=== PATIENT | male | born 1950 | race Caucasian/White ===

== ENCOUNTER 2016-07-17 01:55 | Observation (INO) | payer MEDICARE, OTHER ==
[2016-07-17] MEDS ORDERED: NITROGLYCERIN OINT 1 INCH/GM PACKET TOPICAL STA (02:05)
[2016-07-17] MEDS ORDERED: ASPIRIN 81 MG CHEW PO STA (02:05)
--- NOTE | 2016-07-17 02:21 | ED ---
General Adult HPI - General Chief complaint: Chest Pain Stated complaint: chest pain Time Seen by Provider: 07/17/16 02:02 Source: patient, family, RN notes reviewed Mode of arrival: wheelchair Limitations: no limitations - History of Present Illness Initial comments: Patient is a pleasant 66-year-old male presenting to the emergency Department with chest discomfort. Onset of symptoms was just 30-40 minutes prior to arrival. Discomfort is now improved and rated as a 2/10. Discomfort did feel like pressure with associated dyspnea and sweating. No nausea. Patient had similar symptoms once previously with high blood pressure. Patient does have some bilateral leg swelling however this is fairly chronic. Discomfort did radiate up towards the neck. - Related Data Home Medications Medication Instructions Recorded Confirmed No Known Home Medications [No 07/17/16 07/17/16 Known Home Medications] Allergies Allergy/AdvReac Type Severity Reaction Status Date / Time venom-honey bee Allergy Anaphylaxis Verified 07/17/16 02:14 Review of Systems ROS Statement: Those systems with pertinent positive or pertinent negative responses have been documented in the HPI. ROS Other: All systems not noted in ROS Statement are negative. Constitutional: Denies: fever Eyes: Denies: eye pain ENT: Denies: ear pain Respiratory: Reports: dyspnea. Denies: cough Cardiovascular: Reports: chest pain Endocrine: Denies: fatigue Gastrointestinal: Denies: abdominal pain, nausea, vomiting Genitourinary: Denies: dysuria Musculoskeletal: Denies: back pain Skin: Denies: rash Neurological: Denies: weakness Past Medical History Past Medical History: Coronary Artery Disease (CAD), Hyperlipidemia, Hypertension, Myocardial Infarction ([place]) Additional Past Medical History / Comment(s): gout Last Myocardial Infarction Date:: 2010 History of Any Multi-Drug Resistant Organisms: None Reported Past Surgical History: Heart Catheterization Past Anesthesia/Blood Transfusion Reactions: No Reported Reaction Past Psychological History: No Psychological Hx Reported Smoking Status: Never smoker Past Alcohol Use History: None Reported Past Drug Use History: None Reported - Past Family History Father Family Medical History: CVA/TIA General Exam Limitations: no limitations General appearance: alert, in no apparent distress Head exam: Present: atraumatic Eye exam: Present: normal appearance, PERRL ENT exam: Present: normal oropharynx Neck exam: Present: normal inspection Respiratory exam: Present: normal lung sounds bilaterally. Absent: chest wall tenderness Cardiovascular Exam: Present: regular rate, normal rhythm Expanded Peripheral pulses: 2+: Radial (R), Radial (L), Dorsalis Pedis (R), Dorsalis Pedis (L) GI/Abdominal exam: Present: soft. Absent: tenderness Extremities exam: Present: pedal edema (+2 bilateral). Absent: calf tenderness Neurological exam: Present: alert Psychiatric exam: Present: normal affect, normal mood Skin exam: Absent: rash Course Vital Signs 07/17/16 07/17/16 02:00 02:15 Temperature 97.0 F L Pulse Rate 74 72 Respiratory 18 18 Rate Blood Pressure 176/107 169/103 O2 Sat by Pulse 96 95 Oximetry EKG Findings - EKG Comments: EKG Findings:: Sinus rhythm at 72. W[place] 160. QRS 100. QT 414. QTC 453. Left axis. LVH. Septal Q waves. No acute ST change. Medical Decision Making - Medical Decision Making Patient reexamined and resting comfortably in bed. Patient symptom-free. Patient and family updated on results and plan. Dr. martinez paged for admission for Dr. Guillen. - Lab Data Result diagrams: 07/17/16 02:23 07/17/16 02:23 Lab Results 07/17/16 07/17/16 07/17/16 Range/Units 02:23 02:23 02:23 WBC 5.1 (3.8-10.6) k/uL RBC 5.18 (4.30-5.90) m/uL Hgb 15.9 (13.0-17.5) gm/dL Hct 46.7 (39.0-53.0) % MCV 90.1 (80.0-100.0) fL MCH 30.6 (25.0-35.0) pg MCHC 34.0 (31.0-37.0) g/dL RDW 13.3 (11.5-15.5) % Plt Count 152 (150-450) k/uL Neutrophils % 61 % Lymphocytes % 24 % Monocytes % 7 % Eosinophils % 4 % Basophils % 1 % Neutrophils # 3.1 (1.3-7.7) k/uL Lymphocytes # 1.2 (1.0-4.8) k/uL Monocytes # 0.3 (0-1.0) k/uL Eosinophils # 0.2 (0-0.7) k/uL Basophils # 0.1 (0-0.2) k/uL PT (9.0-12.0) sec INR (<1.1) APTT (22.0-30.0) sec Sodium 140 (137-145) mmol/L Potassium 3.7 (3.5-5.1) mmol/L Chloride 104 (98-107) mmol/L Carbon Dioxide 24 (22-30) mmol/L Anion Gap 12 mmol/L BUN 17 (9-20) mg/dL Creatinine 0.60 L (0.66-1.25) mg/dL Est GFR (MDRD) Af Amer >60 (>60 ml/min/1.73 sqM) Est GFR (MDRD) Non-Af >60 (>60 ml/min/1.73 sqM) Glucose 103 H (74-99) mg/dL Calcium 9.1 (8.4-10.2) mg/dL Magnesium 1.8 (1.6-2.3) mg/dL Total Bilirubin 0.6 (0.2-1.3) mg/dL AST 35 (17-59) U/L ALT 64 (21-72) U/L Alkaline Phosphatase 70 (38-126) U/L Total Creatine Kinase 111 (55-170) U/L CK-MB (CK-2) 1.4 (0.0-2.4) ng/mL CK-MB (CK-2) Rel Index 1.3 Troponin I <0.012 (0.000-0.034) ng/mL Total Protein 6.9 (6.3-8.2) g/dL Albumin 3.9 (3.5-5.0) g/dL 07/17/16 Range/Units 02:23 WBC (3.8-10.6) k/uL RBC (4.30-5.90) m/uL Hgb (13.0-17.5) gm/dL Hct (39.0-53.0) % MCV (80.0-100.0) fL MCH (25.0-35.0) pg MCHC (31.0-37.0) g/dL RDW (11.5-15.5) % Plt Count (150-450) k/uL Neutrophils % % Lymphocytes % % Monocytes % % Eosinophils % % Basophils % % Neutrophils # (1.3-7.7) k/uL Lymphocytes # (1.0-4.8) k/uL Monocytes # (0-1.0) k/uL Eosinophils # (0-0.7) k/uL Basophils # (0-0.2) k/uL PT 11.2 (9.0-12.0) sec INR 1.1 (<1.1) APTT 23.3 (22.0-30.0) sec Sodium (137-145) mmol/L Potassium (3.5-5.1) mmol/L Chloride (98-107) mmol/L Carbon Dioxide (22-30) mmol/L Anion Gap mmol/L BUN (9-20) mg/dL Creatinine (0.66-1.25) mg/dL Est GFR (MDRD) Af Amer (>60 ml/min/1.73 sqM) Est GFR (MDRD) Non-Af (>60 ml/min/1.73 sqM) Glucose (74-99) mg/dL Calcium (8.4-10.2) mg/dL Magnesium (1.6-2.3) mg/dL Total Bilirubin (0.2-1.3) mg/dL AST (17-59) U/L ALT (21-72) U/L Alkaline Phosphatase (38-126) U/L Total Creatine Kinase (55-170) U/L CK-MB (CK-2) (0.0-2.4) ng/mL CK-MB (CK-2) Rel Index Troponin I (0.000-0.034) ng/mL Total Protein (6.3-8.2) g/dL Albumin (3.5-5.0) g/dL - Radiology Data Radiology results: image reviewed (Chest x-ray shows no acute process) Disposition Clinical Impression: Unstable angina pectoris Disposition: ADMITTED IP TO THIS HOSP
[2016-07-17 02:43] LABS: ALT 64 U/L (21-72); AST 35 U/L (17-59); Alkaline Phosphatase 70 U/L (38-126); Anion Gap 12 mmol/L; Blood Urea Nitrogen 17 mg/dL (9-20); Calcium 9.1 mg/dL (8.4-10.2); Carbon Dioxide 24 mmol/L (22-30); Chloride 104 mmol/L (98-107); Glucose 103 mg/dL (74-99); Magnesium 1.8 mg/dL (1.6-2.3); Non-African American GFR(MDRD) >60 (>60 ml/min/1.73 sqM); Potassium 3.7 mmol/L (3.5-5.1); Sodium 140 mmol/L (137-145); Total Bilirubin 0.6 mg/dL (0.2-1.3); Total Protein 6.9 g/dL (6.3-8.2)
[2016-07-17 02:45] LABS: Basophils # (A) 0.1 k/uL (0-0.2); Basophils % (A) 1 %; CH 31.4; CHCM 34.9; Eosinophils # (A) 0.2 k/uL (0-0.7); Eosinophils % (A) 4 %; HCT 46.7 % (39.0-53.0); HDW 2.62; HGB 15.9 gm/dL (13.0-17.5); Luc # (Auto) 0.16; Luc % (Auto) 3; Lymphocytes # (A) 1.2 k/uL (1.0-4.8); Lymphocytes % (A) 24 %; MCH 30.6 pg (25.0-35.0); MCV 90.1 fL (80.0-100.0); Mean Platelet Volume 6.4; Monocytes # (A) 0.3 k/uL (0-1.0); Monocytes % (A) 7 %; Neutrophils # (A) 3.1 k/uL (1.3-7.7); Neutrophils % (A) 61 %; RBC 5.18 m/uL (4.30-5.90); RDW 13.3 % (11.5-15.5); WBC 5.1 k/uL (3.8-10.6)
[2016-07-17 02:50] LABS: INR 1.1 (<1.1); Partial Thromboplastin Time 23.3 sec (22.0-30.0); Prothrombin Time 11.2 sec (9.0-12.0)
[2016-07-17 02:52] LABS: Creatine Kinase 111 U/L (55-170)
[2016-07-17 03:05] LABS: Creatine Kinase MB 1.4 ng/mL (0.0-2.4); Troponin I <0.012 ng/mL (0.000-0.034)
--- NOTE | 2016-07-17 03:08 | XR ---
EXAMINATION TYPE: XR chest 2V DATE OF EXAM: 07/17/2016 2:39 AM COMPARISON: 02/11/2014 HISTORY: Chest pain TECHNIQUE: Frontal and lateral views of the chest are obtained. FINDINGS: There is no heart failure nor confluent pneumonic infiltrate. There are no hilar masses. T horacic aorta is atheromatous. There is no pleural effusion. There are chest leads. IMPRESSION: No active cardiopulmonary disease. No change. Normal heart.
[2016-07-17] MEDS ORDERED: HEPARIN SODIUM,PORCINE 5,000 UNIT/ML 1 ML VIAL IV PRN (03:17)
[2016-07-17] MEDS ORDERED: NITROGLYCERIN SL TABS 0.4 MG TAB SUBLINGUAL PRN (03:17)
[2016-07-17] MEDS ORDERED: HEPARIN SODIUM,PORCINE 5,000 UNIT/ML 1 ML VIAL IV ONE (03:17)
[2016-07-17] MEDS ORDERED: HEPARIN SODIUM,PORCINE/D5W PMX 25,000 UNIT in DEXTROSE/WATER 1 500ML.BAG IV SCH (03:30)
[2016-07-17 04:18] VITALS: BMI 38.3
[2016-07-17] MEDS: METOPROLOL TARTRATE 25 MG TAB PO SCH ×2 (04:24→09:33)
[2016-07-17 04:40] VITALS: PULSE 63; RESP 18
[2016-07-17] MEDS ORDERED: NITROGLYCERIN OINT 1 INCH/GM PACKET TOPICAL SCH (07:00)
[2016-07-17 07:56] VITALS: BP 158/92; TEMP 97.7
--- NOTE | 2016-07-17 08:22 | P.CRDCN ---
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 He was sitting at home yesterday when he developed a hot feeling in the face and subsequently sharp discomfort in the mid of the chest. He developed some mild shortness of breath with it without any sweating, nausea, vomiting, or syncope. The time he arrived emergency room he was almost pain-free. He underwent an EKG which showed sinus rhythm with LVH and nonspecific changes in the inferior leads. He had only one set of cardiac enzymes came in to be unremarkable and we are waiting for the second set of enzymes. He is not aware of any prior history of coronary artery disease or coronary artery stenting. Past Medical History Past Medical History: Coronary Artery Disease (CAD), Hyperlipidemia, Hypertension, Myocardial Infarction ([place]) Additional Past Medical History / Comment(s): gout Last Myocardial Infarction Date:: 2010 History of Any Multi-Drug Resistant Organisms: None Reported Past Surgical History: Heart Catheterization Past Anesthesia/Blood Transfusion Reactions: No Reported Reaction Past Psychological History: No Psychological Hx Reported Smoking Status: Never smoker Past Alcohol Use History: None Reported Past Drug Use History: None Reported - Past Family History Father Family Medical History: CVA/TIA Mother Family Medical History: No Reported History Medications and Allergies Home Medications Medication Instructions Recorded Confirmed Type Aspirin [Adult Low Dose Aspirin EC] 81 mg PO DAILY 07/17/16 07/17/16 History Gluc/Gabriel-MSM#1/C/John/Fredrick/Bor 1 each PO DAILY 07/17/16 07/17/16 History [Glucosamine-Chondroitin Tablet] Multivit-Min/FA/Lycopene/Lut 1 each PO DAILY 07/17/16 07/17/16 History [Centrum Silver Tablet] Allergies Allergy/AdvReac Type Severity Reaction Status Date / Time Penicillins Allergy Rash/Hives Verified 07/17/16 04:09 venom-honey bee Allergy Anaphylaxis Verified 07/17/16 02:14 Physical Exam Vitals: Vital Signs Temp Pulse Pulse Pulse Resp BP BP 07/17/16 07:55 97.7 F 63 18 158/92 07/17/16 05:08 137/84 07/17/16 04:00 97.9 F 63 18 163/100 07/17/16 03:34 98.1 F 62 16 157/90 Pulse Ox 07/17/16 07:55 93 L 07/17/16 05:08 07/17/16 04:00 94 L 07/17/16 03:34 97 Intake and Output 07/16/16 07/17/16 07/17/16 22:59 06:59 14:59 Other: # Voids 1 Weight 124.7 kg - Constitutional General appearance: no acute distress - Respiratory Respiratory: bilateral: CTA - Cardiovascular Rhythm: regular Heart sounds: normal: S1, S2 Results 07/17/16 02:23 07/17/16 02:23 Current Medications Generic Name Dose Route Start Last Admin Trade Name Benjy PRN Reason Stop Dose Admin Aspirin 325 mg 07/18/16 09:00 Aspirin PO DAILY KRYSTEN Heparin Sodium (Porcine) 0 unit 07/17/16 03:17 Heparin IV Q6HR PRN Low PTT Protocol Heparin Sodium/Dextrose 25,000 500 mls @ 20.2 mls/hr 07/17/16 03:30 07/17/16 03:54 unit/ IV Solution IV 8.01 units/kg/hr .Q24H KRYSTEN 20 mls/hr Protocol Administration 8.1 UNITS/KG/HR Metoprolol Tartrate 25 mg 07/17/16 03:30 07/17/16 04:24 Lopressor PO 25 mg BID KRYSTEN Administration Nitroglycerin 1 inch 07/17/16 07:00 Nitro-Bid Oint TOPICAL Q6HR KRYSTEN Nitroglycerin 0.4 mg 07/17/16 03:17 Nitrostat SUBLINGUAL Q5M PRN Chest Pain Intake and Output 07/16/16 07/17/16 07/17/16 22:59 06:59 14:59 Other: # Voids 1 Weight 124.7 kg Assessment and Plan Plan: Assessment #1 atypical chest discomfort #2 hypertension Plan #1 awaiting for the serial cardiac enzymes #2 further recommendation to follow the
[2016-07-17 08:29] LABS: Mean Platelet Volume 7.7
[2016-07-17 09:00] LABS: Creatine Kinase 89 U/L (55-170)
[2016-07-17] MEDS ORDERED: LISINOPRIL 5 MG TAB PO SCH (09:00)
[2016-07-17 09:12] LABS: Creatine Kinase MB 1.1 ng/mL (0.0-2.4); Troponin I <0.012 ng/mL (0.000-0.034)
--- NOTE | 2016-07-17 13:20 | HP ---
DATE OF ADMISSION: 07/17/2016 PRESENTING COMPLAINT: Chest pain. HISTORY OF PRESENTING COMPLAINT: This is a 66-year-old patient of Dr. Guillen, chronic stable medical conditions include hyperlipidemia, hypertension, gout. Patient also has a known history of coronary artery disease with [place] back in 2012 with angioplasty. Patient last night suddenly felt extremely hot, maybe slightly short of breath. Not sure if he was dizzy and decided to come in. Patient was admitted to rule out a cardiac cause. Patient has got a fair exercise tolerance and normally does not get chest pain. is present with the patient. Patient has not had a recent stress test. REVIEW OF SYSTEMS: CONSTITUTIONAL: None. HEENT: None. RESPIRATORY: As above. CARDIOVASCULAR: As above. GASTROINTESTINAL: None. GENITOURINARY: None. MUSCULOSKELETAL: None. DERMATOLOGIC: None. HEMATOLOGIC: None. LYMPHATIC: None. PSYCHIATRY: None. NEUROLOGICAL: None. Past history of coronary artery disease with [place] in 2013 with angioplasty, hyperlipidemia, hypertension, gout. PAST SURGICAL HISTORY: Cardiac catheterization. SOCIAL HISTORY: . 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 Does not smoke. No alcohol. Family history of stroke. HOME MEDICATIONS: 1. Glucosamine/chondroitin 1 tablet p.o. daily. 2. Centrum Silver 1 tablet daily. 3. Aspirin 81 mg p.o. daily. Allergies to PENICILLIN and VENOM-HONEY BEE. On examination, temperature 97.7, pulse 53, respiration 18, blood pressure 150/92, pulse ox 93% on room air. GENERAL APPEARANCE: Well built, BMI of 38.3, lying in bed, not in distress. EYES: Pupils equal. Conjunctivae normal. HEENT: Oral cavity normal. NECK: JVD not raised. Mass not palpable. Respiratory effort normal. Lungs are clear. CARDIOVASCULAR: First and second sounds normal. No edema. ABDOMEN: Soft, nontender. Liver and spleen not palpable. LYMPHATIC: No lymph node palpable in neck or axillae. PSYCHIATRY: Alert and oriented x3. Mood and affect normal. NEUROLOGICAL: Pupils equal. Cranial nerves intact. Power and sensation grossly intact. INVESTIGATIONS: White count 5.1, hemoglobin 15.9. Potassium 3.7, troponin x2 negative. ASSESSMENT: 1. Uncontrolled hypertension. 2. Coronary artery disease with prior history of angioplasty in 2012. 3. Hyperlipidemia. 4. History of gout. 5. Obesity, body mass index of 38.3. PLAN: Patient was put on IV heparin in the ER, aspirin, Lopressor. Cardiology was consulted. Patient presentation rather atypical for acute coronary artery syndrome. Care was discussed with the patient and the .
--- NOTE | 2016-07-18 08:17 | DS ---
DATE OF ADMISSION: 07/17/2016 DATE OF DISCHARGE: 07/17/2016 FINAL DIAGNOSES: 1. Uncontrolled hypertension. 2. Coronary artery disease with prior history of angioplasty in 2012. 3. Hyperlipidemia. 4. Gout. 5. Obesity, body mass index of 38.3. HOSPITAL COURSE: This patient presented with burning sensation in his chest. Blood pressure was very high. Medications were added. Patient seen by Dr. Hinojosa. Patient will have an outpatient stress test. Troponin was negative. Patient is clear with Dr. Hinojosa. On exam, lungs are clear. CARDIOVASCULAR: First and second sounds are normal. DISCHARGE MEDICATIONS: 1. Aspirin 81 mg a day. 2. Glucosamine/chondroitin 1 tablet p.o. daily. 3. Zestril 5 mg a day. 4. Lopressor 25 mg p.o. b.i.d. 5. Centrum Silver 1 tablet p.o. daily. 6. Nitrostat 0.4 sublingual q.5 p.r.n. Follow up with Dr. Hinojosa in 1 week. Follow up with Dr. Guillen in 1 week. Outpatient stress test as per Dr. Hinojosa.
[2016-07-18] MEDS ORDERED: ASPIRIN 325 MG TAB PO SCH (09:00)
== END 2016-07-17 11:44 | disposition home or self-care (01) ==
LOC: EC 01:55 → 3OBS 03:17
PROVIDERS: ADMIT Hospitalist; ATTEND Hospitalist
DX: I10 Essential (primary) hypertension (principal); I25.10 Atherosclerotic heart disease of native coronary artery without angina pectoris; E78.5 Hyperlipidemia, unspecified; M10.9 Gout, unspecified; E66.9 Obesity, unspecified; Z68.38 Body mass index [BMI] 38.0-38.9, adult; I25.2 Old myocardial infarction; Z82.3 Family history of stroke; Z79.82 Long term (current) use of aspirin; Z88.0 Allergy status to penicillin; Z95.5 Presence of coronary angioplasty implant and graft
CPT/HCPCS: 36415; 93005; 83880; 80053; 82550; 82553; 83735; 84484; 85025; 85049; 85610; 85730; 71020; 99285; 96376; G0378; J1644 ×2; 96365; 96366

== ENCOUNTER 2016-08-15 13:10 | Day surgery (SDC) | payer MEDICARE ==
[2016-08-11 15:16] VITALS: BMI 38.3
[~2016-08-15 13:10] MED LIST: HYDROmorphone 1 MG/ML 1 ML SYRINGE IVP PRN; LACTATED RINGERS 1,000 ML IV SCH; LIDOCAINE 1% 20 ML VIAL (10MG/ML) FOR IV START INTRADERMA PRN; MIDAZOLAM 2 MG/2 ML VIAL IV PRN; ONDANSETRON 4 MG/2 ML VIAL IVP PRN; Pre Op ABX Message 1 EACH MISC MISCELLANE ONE
[2016-08-15] MEDS ORDERED: MIDAZOLAM 2 MG/2 ML VIAL ONE (14:56)
[2016-08-15] MEDS ORDERED: PROPOFOL 10 MG/ML 20 ML VIAL IV ONE (14:56)
[2016-08-15] MEDS ORDERED: fentaNYL (PF) 50 MCG/ML 2 ML AMP ONE (14:56)
[2016-08-15] MEDS ORDERED: LIDOCAINE 1% (PF) 10MG/ML VIAL SQ ONE (15:03)
[2016-08-15] MEDS ORDERED: BUPIVACAINE (PF) 0.5% 30 ML VIAL SQ ONE (15:03)
[2016-08-15 15:34] VITALS: TEMP 97.8
[2016-08-15 15:54] VITALS: BP 125/79; PULSE 64; RESP 18
--- NOTE | 2016-08-15 21:27 | OP ---
DATE OF SERVICE: 08/15/2016 SURGEON: ANDRES LOGAN DO [employer] ARCHITECT: PREOPERATIVE DIAGNOSIS: Mass, first web space, left hand. POSTOPERATIVE DIAGNOSIS: Mass, first web space, left hand. OPERATION: 1. Excision of mass, first web space, left hand. 2. Neurolysis, radial digital nerve, left index finger. ANESTHESIA: ESTIMATED BLOOD LOSS: SPECIMENS REMOVED: COMPLICATIONS: GROSS PATHOLOGY: This was a 2 cm diameter fairly well encapsulated mass apparently around a metallic foreign body. There were no signs of infection. The scar tissue was adherent to the subcutaneous tissue and to the radial digital nerve. A gentle neurolysis under 4.5 loupe magnification freed up the radial digital nerve from the mass and the nerve appeared completely intact at completion of the procedure. PROCEDURE: [id number]-old man was taken to the operative suite and given IV sedation. Local anesthetic was injected with a combination of Xylocaine and Marcaine, both without epinephrine. The left hand was then prepped and draped in the usual manner. It was elevated, exsanguinated and cuff inflated to 250 mmHg. An L-shaped, proximally based flap was created over the palpable mass, which was in the first web space and adjacent to the radial digital nerve of the index finger. Skin flap was dissected under 4.5 loupe magnification and held retracted with a skin hook and blunt retractor. The radial digital nerve was identified in a normal zone distal to the mass. It was then traced proximally, freeing the nerve from its adhesions about the mass. The mass was then removed with a combination of blunt and sharp dissection and sent to the lab for analysis. It had all the characteristics of an inclusion cyst surrounding a metallic foreign body. There were no further signs of any abnormal tissue in the area. The digital nerve and vessel to the radial aspect index finger were intact at the completion of the procedure. Tourniquet was released. The wound was irrigated. Hemostasis was acquired with pressure and a limited amount of electrocautery. Again care was taken to protect the digital nerve and vessel. Skin was closed with 5-0 nylon suture. A soft bulky dressing was applied and patient was taken to the recovery room in satisfactory condition.
== END 2016-08-15 16:30 | disposition home or self-care (01) ==
LOC: OR 13:10
PROVIDERS: ATTEND Orthopaedic Surgery Hand Surgery
DX: M79.5 Residual foreign body in soft tissue (principal); R22.32 Localized swelling, mass and lump, left upper limb; M19.042 Primary osteoarthritis, left hand; I10 Essential (primary) hypertension; E78.5 Hyperlipidemia, unspecified; I25.10 Atherosclerotic heart disease of native coronary artery without angina pectoris; I25.2 Old myocardial infarction; Z79.82 Long term (current) use of aspirin; Z79.899 Other long term (current) drug therapy; Z88.0 Allergy status to penicillin
CPT/HCPCS: 88304; 64702; 10121; J2250; J2405; J3010; J2001; J2704

== ENCOUNTER 2016-08-25 07:27 | Emergency (ER) | payer MEDICARE, OTHER ==
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
[2016-08-25] MEDS ORDERED: ONDANSETRON 4 MG/2 ML VIAL IVP STA (08:59)
[2016-08-25] MEDS ORDERED: HYDROmorphone 1 MG/ML 1 ML SYRINGE IVP STA (08:59)
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
--- NOTE | 2016-08-25 10:42 | XR ---
EXAMINATION TYPE: XR pelvis AP view DATE OF EXAM ORDERED: 08/25/2016 10:38 AM HISTORY: Pain. COMPARISON: None. FINDINGS: There are mild degenerative changes of both hips. There is facet arthropathy at the L5-S1 level. Osseous structures about the pelvis are otherwise normal. No fracture is seen. IMPRESSION: 1. NO ACUTE OSSEOUS LESION. 2. DEGENERATIVE CHANGE IN THE HIPS AND SPINE.
--- NOTE | 2016-08-25 10:44 | XR ---
EXAMINATION TYPE: XR knee complete LT DATE OF EXAM: 08/25/2016 10:38 AM CLINICAL HISTORY: Left knee pain TECHNIQUE: Three views of the left knee are obtained. COMPARISON: Prior left knee x-ray August 09, 2011. FINDINGS: There is no acute fracture/dislocation evident in left knee. The there is moderate to sev ere joint space loss patellofemoral compartment with mild spurring redemonstrated felt stable. There is mild to moderate spurring and joint space loss medial tibiofemoral compartment with probable sligh t progression. Relative sparing of lateral tibiofemoral compartment is redemonstrated. Increased dens ity suprapatellar bursa could reflect moderate joint effusion without significant change. IMPRESSION: There are degenerative changes left knee most pronounced patellofemoral compartment rede monstrated as detailed above, medial compartment changes are felt progressed from prior x-ray.
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
--- NOTE | 2016-08-25 10:49 | XR ---
EXAMINATION TYPE: XR elbow complete LT DATE OF EXAM ORDERED: 08/25/2016 10:38 AM HISTORY: Pain. COMPARISON: Previous study dated 08/09/2011. FINDINGS: There are moderate degenerative changes within the elbow with loss of cartilaginous joint space in the articulation of the radius with the capitellum. There is hypertrophic spurring arising f rom the coronoid. No fracture, dislocation or joint effusion is seen. IMPRESSION: 1. NO ACUTE OSSEOUS LESION. 2. MODERATE DEGENERATIVE CHANGE.
[2016-08-25 12:04] VITALS: BP 168/86; PULSE 70; RESP 18; TEMP 98
== END 2016-08-25 12:08 | disposition home or self-care (01) ==
LOC: EC 07:27
DX: S06.0X0A Concussion without loss of consciousness, initial encounter (principal); S50.02XA Contusion of left elbow, initial encounter; S90.30XA Contusion of unspecified foot, initial encounter; M25.562 Pain in left knee; V09.9XXA Pedestrian injured in unspecified transport accident, initial encounter; Y92.481 Parking lot as the place of occurrence of the external cause; Z79.82 Long term (current) use of aspirin; Z79.899 Other long term (current) drug therapy; I25.2 Old myocardial infarction; I25.10 Atherosclerotic heart disease of native coronary artery without angina pectoris; I10 Essential (primary) hypertension; E78.5 Hyperlipidemia, unspecified; Z98.61 Coronary angioplasty status; Z88.0 Allergy status to penicillin
CPT/HCPCS: 71020; 72170; 73080; 73562; 73610; 73630; 72125; 70450; 99284; 96374; 96375; J2405; J1170

== ENCOUNTER → 2016-08-30 | Outpatient (CLI) | payer OTHER, MEDICARE ==
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
== END ==
LOC: RADXRMAIN 14:42
PROVIDERS: ATTEND Family Medicine
DX: M19.072 Primary osteoarthritis, left ankle and foot (principal); M79.89 Other specified soft tissue disorders; M77.32 Calcaneal spur, left foot

== ENCOUNTER 2017-02-28 20:50 | Emergency (ER) | payer MEDICARE, OTHER ==
[2017-02-28 21:04] VITALS: TEMP 98.3
[2017-02-28] MEDS ORDERED: HYDROmorphone 1 MG/ML 1 ML SYRINGE IVP STA (21:13)
[2017-02-28] MEDS ORDERED: ONDANSETRON 4 MG/2 ML VIAL IVP STA (21:13)
--- NOTE | 2017-02-28 21:17 | ED ---
Abdominal Pain HPI - General Chief Complaint: Abdominal Pain Stated Complaint: Back Pain, Vomiting Time Seen by Provider: 02/28/17 21:07 Source: patient Mode of arrival: ambulatory Limitations: no limitations - History of Present Illness Initial Comments: Shouldn't is a 66-year-old man who presents to be evaluated for right flank pain that radiates towards the right lower quadrant. This developed about a half hour before he decided to come here. He states that the pain became severe. He has not noted worsening or relieving factors. There has also been some accompanying nausea. The patient's adds that he had an episode of this around 1 this afternoon but wasn't very severe and it resolved. MD Complaint: flank pain -: days(s) Location: R flank Radiation: RLQ Migration to: no migration Severity: severe Quality: aching Consistency: constant Improves With: nothing Worsens With: nothing Associated Symptoms: nausea - Related Data Home Medications Medication Instructions Recorded Confirmed Aspirin [Adult Low Dose Aspirin EC] 81 mg PO DAILY 07/17/16 02/28/17 Nitroglycerin Sl Tabs [Nitrostat] 0.4 mg SUBLINGUAL Q5M PRN 08/11/16 02/28/17 Atorvastatin Calcium [Lipitor] 40 mg PO HS 08/25/16 02/28/17 Amitriptyline HCl [Elavil] 25 mg PO HS 02/28/17 02/28/17 Lisinopril [Zestril] 10 mg PO DAILY 02/28/17 02/28/17 Metoprolol Succinate (ER) [Toprol 12.5 mg PO BID 02/28/17 02/28/17 Xl] Sertraline [Zoloft] 50 mg PO DAILY 02/28/17 02/28/17 Terbinafine [LamISIL] 250 mg PO DAILY 02/28/17 02/28/17 traMADol HCL [Ultram] 50 mg PO Q4HR PRN MDD 8 tablets 02/28/17 02/28/17 traMADol HCL [Ultram] 100 mg PO Q4HR PRN MDD 8 tablets 02/28/17 02/28/17 Previous Rx's Medication Instructions Recorded Hydrocodone/Acetaminophen [[place] 1 each PO Q6HR PRN #20 tab 02/28/17 5-325] Ondansetron Odt [Zofran ODT] 4 mg PO Q8HR PRN #10 tab 02/28/17 Tamsulosin [Flomax] 0.4 mg PO DAILY #14 cap 02/28/17 Allergies Allergy/AdvReac Type Severity Reaction Status Date / Time Penicillins Allergy Rash/Hives Verified 02/28/17 21:04 venom-honey bee Allergy Anaphylaxis Verified 02/28/17 21:04 Review of Systems ROS Statement: Those systems with pertinent positive or pertinent negative responses have been documented in the HPI. ROS Other: All systems not noted in ROS Statement are negative. Constitutional: Denies: fever, chills Respiratory: Denies: cough, dyspnea Cardiovascular: Denies: chest pain, palpitations, edema Gastrointestinal: Reports: as per HPI, abdominal pain, nausea. Denies: vomiting , diarrhea, constipation, melena, hematochezia Genitourinary: Denies: dysuria, hematuria, discharge, testicular pain Musculoskeletal: Denies: back pain Skin: Denies: rash Neurological: Denies: headache, weakness, numbness Past Medical History Past Medical History: Coronary Artery Disease (CAD), Hyperlipidemia, Hypertension, Myocardial Infarction ([place]) Additional Past Medical History / Comment(s): arthritis, hx gout, recent stress test ok per pt, Last Myocardial Infarction Date:: 2011 History of Any Multi-Drug Resistant Organisms: None Reported Past Surgical History: Heart Catheterization, Orthopedic Surgery Additional Past Surgical History / Comment(s): arthroscopy left knee Past Anesthesia/Blood Transfusion Reactions: No Reported Reaction Past Psychological History: No Psychological Hx Reported Smoking Status: Never smoker Past Alcohol Use History: None Reported Past Drug Use History: None Reported - Past Family History Father Family Medical History: CVA/TIA Mother Family Medical History: No Reported History General Exam Limitations: no limitations General appearance: alert, in no apparent distress, obese Head exam: Present: atraumatic, normocephalic Eye exam: Present: normal appearance. Absent: scleral icterus, conjunctival injection ENT exam: Present: normal oropharynx Respiratory exam: Present: normal lung sounds bilaterally. Absent: respiratory distress, wheezes, rales, rhonchi, stridor Cardiovascular Exam: Present: regular rate, normal rhythm, normal heart sounds. Absent: systolic murmur, diastolic murmur, rubs, gallop GI/Abdominal exam: Present: soft. Absent: distended, tenderness, guarding, rebound, rigid, mass, pulsatile mass, hernia Extremities exam: Present: normal inspection, normal capillary refill. Absent: pedal edema, calf tenderness Back exam: Present: normal inspection. Absent: CVA tenderness (R), CVA tenderness (L), vertebral tenderness Neurological exam: Present: alert Skin exam: Present: warm, dry, intact, normal color. Absent: rash Course Vital Signs 02/28/17 02/28/17 21:02 22:38 Temperature 98.3 F Pulse Rate 66 76 Respiratory 20 16 Rate Blood Pressure 169/96 142/78 O2 Sat by Pulse 94 L 99 Oximetry Medical Decision Making - Lab Data Result diagrams: 02/28/17 21:20 02/28/17 21:20 Lab Results 02/28/17 02/28/17 02/28/17 Range/Units 21:20 21:20 22:45 WBC 8.6 (3.8-10.6) k/uL RBC 4.69 (4.30-5.90) m/uL Hgb 14.8 (13.0-17.5) gm/dL Hct 44.4 (39.0-53.0) % MCV 94.7 (80.0-100.0) fL MCH 31.6 (25.0-35.0) pg MCHC 33.3 (31.0-37.0) g/dL RDW 14.0 (11.5-15.5) % Plt Count 174 (150-450) k/uL Neutrophils % 77 % Lymphocytes % 13 % Monocytes % 5 % Eosinophils % 3 % Basophils % 1 % Neutrophils # 6.6 (1.3-7.7) k/uL Lymphocytes # 1.1 (1.0-4.8) k/uL Monocytes # 0.4 (0-1.0) k/uL Eosinophils # 0.3 (0-0.7) k/uL Basophils # 0.1 (0-0.2) k/uL Sodium 141 (137-145) mmol/L Potassium 3.9 (3.5-5.1) mmol/L Chloride 107 (98-107) mmol/L Carbon Dioxide 24 (22-30) mmol/L Anion Gap 10 mmol/L BUN 19 (9-20) mg/dL Creatinine 0.89 (0.66-1.25) mg/dL Est GFR (MDRD) Af Amer >60 (>60 ml/min/1.73 sqM) Est GFR (MDRD) Non-Af >60 (>60 ml/min/1.73 sqM) Glucose 172 H (74-99) mg/dL Calcium 8.7 (8.4-10.2) mg/dL Total Bilirubin 0.4 (0.2-1.3) mg/dL AST 50 (17-59) U/L ALT 74 H (21-72) U/L Alkaline Phosphatase 59 (38-126) U/L Total Protein 6.4 (6.3-8.2) g/dL Albumin 3.7 (3.5-5.0) g/dL Amylase 39 (30-110) U/L Lipase 81 (23-300) U/L Urine Color Yellow Urine Appearance Cloudy (Clear) Urine pH 5.5 (5.0-8.0) Ur Specific Watts 1.014 (1.001-1.035) Urine Protein Trace H (Negative) Urine Glucose (UA) 2+ H (Negative) Urine Ketones Negative (Negative) Urine Blood Moderate H (Negative) Urine Nitrite Negative (Negative) Urine Bilirubin Negative (Negative) Urine Urobilinogen <2.0 (<2.0) mg/dL Ur Leukocyte Esterase Negative (Negative) Urine RBC >182 H (0-5) /hpf Urine WBC 5 (0-5) /hpf Ur Squamous Epith Cells <1 (0-4) /hpf Urine Bacteria Occasional H (None) /hpf Hyaline Casts 1 (0-2) /lpf Urine Mucus Occasional H (None) /hpf Disposition Clinical Impression: Calculus of kidney Disposition: HOME SELF-CARE Condition: Good Instructions: Kidney Stones (ED) Prescriptions: Hydrocodone/Acetaminophen [[place] 5-325] 1 each PO Q6HR PRN #20 tab PRN Reason: Pain Ondansetron Odt [Zofran ODT] 4 mg PO Q8HR PRN #10 tab PRN Reason: Nausea Tamsulosin [Flomax] 0.4 mg PO DAILY #14 cap Referrals: Ezio Guillen DO [Primary Care Provider] - 1-2 days Jeffrey Spaulding MD [STAFF PHYSICIAN] - 1-2 days
[2017-02-28 21:35] LABS: Basophils # (A) 0.1 k/uL (0-0.2); Basophils % (A) 1 %; CH 32.6; CHCM 34.5; Eosinophils # (A) 0.3 k/uL (0-0.7); Eosinophils % (A) 3 %; HCT 44.4 % (39.0-53.0); HDW 2.48; HGB 14.8 gm/dL (13.0-17.5); Luc # (Auto) 0.12; Luc % (Auto) 1; Lymphocytes # (A) 1.1 k/uL (1.0-4.8); Lymphocytes % (A) 13 %; MCH 31.6 pg (25.0-35.0); MCHC 33.3 g/dL (31.0-37.0); MCV 94.7 fL (80.0-100.0); Mean Platelet Volume 7.1; Monocytes # (A) 0.4 k/uL (0-1.0); Monocytes % (A) 5 %; Neutrophils # (A) 6.6 k/uL (1.3-7.7); Neutrophils % (A) 77 %; RBC 4.69 m/uL (4.30-5.90); WBC 8.6 k/uL (3.8-10.6); WBC (Perox) 8.92
[2017-02-28 21:50] LABS: ALT 74 U/L (21-72); AST 50 U/L (17-59); Alkaline Phosphatase 59 U/L (38-126); Amylase 39 U/L (30-110); Anion Gap 10 mmol/L; Blood Urea Nitrogen 19 mg/dL (9-20); Calcium 8.7 mg/dL (8.4-10.2); Carbon Dioxide 24 mmol/L (22-30); Chloride 107 mmol/L (98-107); Glucose 172 mg/dL (74-99); Non-African American GFR(MDRD) >60 (>60 ml/min/1.73 sqM); Potassium 3.9 mmol/L (3.5-5.1); Sodium 141 mmol/L (137-145); Total Bilirubin 0.4 mg/dL (0.2-1.3); Total Protein 6.4 g/dL (6.3-8.2)
--- NOTE | 2017-02-28 22:06 | CT ---
EXAMINATION TYPE: CT abdomen pelvis wo con DATE OF EXAM: 02/28/2017 COMPARISON: 09/14/2009 HISTORY: Right flank pain today. History of stones. CT DLP: 2103.70 mGycm Automated exposure control for dose reduction was used. TECHNIQUE: Helical acquisition of images was performed from the lung bases through the pelvis. FINDINGS: Lung bases are clear of consolidation. There is no pleural effusion. Liver spleen appear normal. There are a few punctate pancreatic calcifications. Bile ducts are not di lated. Gallbladder appears normal. There is no adrenal mass. There are bilateral renal parapelvic cysts. There is a 5 mm calculus at the left ureteropelvic junction. There are multiple small bilateral renal calculi. There is mild left-si ded hydronephrosis. There is also mild right-sided hydronephrosis and a 3 mm calculus in the proximal right ureter. There is no retroperitoneal adenopathy. Bladder distends smoothly. There is no evidence of a pelvic m ass. I see no intestinal wall thickening. There are no dilated loops. Appendix appears normal. I see no bony destructive process. There is multilevel spondylosis in the lumbar spine.: IMPRESSION: BILATERAL OBSTRUCTING CALCULI IN THE PROXIMAL URETERS ABOVE. MULTIPLE BILATERAL RENAL CALCULI. URETERAL OBSTRUCTION APPEARS NEW COMPARED TO OLD CT SCAN. THERE ARE MORE RENAL CALCULI COMPARED TO OLD EXAM. THERE IS A 3 CM CORTICAL CYST ON THE POSTERIOR LEFT KIDNEY THAT APPEARS STABLE. There are small pancreatic calcifications consistent with chronic pancreatitis t hat is new compared to old exam.
[2017-02-28] MEDS ORDERED: TAMSULOSIN 0.4 MG CAP.ER.24H PO STA (22:08)
[2017-02-28 22:39] VITALS: RESP 16
[2017-02-28 22:59] LABS: Appearance,Urine Cloudy (Clear); Bacteria,Urine Occasional /hpf; Bilirubin,Urine Negative (Negative); Glucose,Urine (UA) 2+ (Negative); Ketones,Urine Negative (Negative); Leukocyte Esterase,Urine Negative (Negative); Mucus,Urine Occasional /hpf; Nitrite,Urine Negative (Negative); PH, Urine 5.5 (5.0-8.0); Particle Count 2378; Protein,Urine Trace (Negative); RBC,Urine >182 /hpf (0-5); Specific Gravity,Urine 1.014 (1.001-1.035); Squamous Epithelial Cell,Urine <1 /hpf (0-4); UA Billing (MACRO vs. MICRO) MICRO; Urobilinogen,Urine <2.0 mg/dL (<2.0); WBC,Urine 5 /hpf (0-5)
[2017-02-28 23:49] VITALS: BP 125/68; PULSE 87
== END 2017-02-28 23:48 | disposition home or self-care (01) ==
LOC: EC 20:50
DX: N13.2 Hydronephrosis with renal and ureteral calculous obstruction (principal); N28.1 Cyst of kidney, acquired; I25.10 Atherosclerotic heart disease of native coronary artery without angina pectoris; I10 Essential (primary) hypertension; E78.5 Hyperlipidemia, unspecified; K86.89 Other specified diseases of pancreas; M19.90 Unspecified osteoarthritis, unspecified site; Z98.61 Coronary angioplasty status; I25.2 Old myocardial infarction; Z79.82 Long term (current) use of aspirin; Z79.899 Other long term (current) drug therapy; Z88.0 Allergy status to penicillin; Z91.030 Bee allergy status
CPT/HCPCS: 99284; 96374; 96375; 36415; 80053; 82150; 83690; 85025; 81001; 74176; J2405; J1170

== ENCOUNTER → 2017-10-03 | Outpatient (CLI) | payer MEDICARE, OTHER ==
--- NOTE | 2017-10-03 11:23 | US ---
EXAMINATION TYPE: US venous doppler duplex LE LT DATE OF EXAM: 10/03/2017 10:27 AM COMPARISON: NONE CLINICAL HISTORY: M79.672 Foot And Calf Pain. SIDE PERFORMED: Left TECHNIQUE: The lower extremity deep venous system is examined utilizing real time linear array sonog claudio with graded compression, doppler sonography and color-flow sonography. VESSELS IMAGED: External Iliac Vein (EIV) Common Femoral Vein Deep Femoral Vein Greater Saphenous Vein * Femoral Vein Popliteal Vein Proximal Calf Veins (* superficial vessels) Grayscale, color doppler, spectral doppler imaging performed of the deep veins of the lower extremity . There is normal flow, compressibility, vascular waveforms. 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 IMPRESSION: No sonographic evidence of deep venous thrombosis within the left lower extremity.
== END | disposition home or self-care (01) ==
LOC: RADUSWWP 10:23
PROVIDERS: ATTEND Orthopaedic Surgery
DX: M79.672 Pain in left foot (principal); I80.9 Phlebitis and thrombophlebitis of unspecified site; M19.072 Primary osteoarthritis, left ankle and foot; M21.6X2 Other acquired deformities of left foot

== ENCOUNTER 2017-11-14 21:13 | Inpatient (IN) | payer MEDICARE, OTHER ==
[2017-11-14] MEDS ORDERED: FUROSEMIDE 10 MG/ML 4 ML VIAL IV STA (22:04)
[2017-11-14] MEDS ORDERED: DILTIAZEM 5 MG/1 ML (25ML VIAL) IV STA (22:05)
--- NOTE | 2017-11-14 22:12 | ED ---
General Adult HPI - General Chief complaint: Shortness of Breath Stated complaint: SOB/leg & feet swelling Time Seen by Provider: 11/14/17 21:54 Source: patient, RN notes reviewed Mode of arrival: ambulatory Limitations: no limitations - History of Present Illness Initial comments: Patient is a pleasant 7 he 7-year-old male presenting to the emergency Department with complaints of swelling and dyspnea. This is a new problem for the patient. Onset was yesterday morning. Patient has swelling of his legs and feels even his hand might be somewhat swollen. Patient does feel short of breath. Dyspnea increases while lying down as well as with exertion. Patient does have cough with occasional white sputum. No fever. Patient did have a brief episode of chest discomfort earlier today lasting just minutes. Patient has been extrinsic palpitations which is also a new thing for him. No history of cardiac dysrhythmia. - Related Data Home Medications Medication Instructions Recorded Confirmed Atorvastatin Calcium [Lipitor] 40 mg PO DAILY 08/25/16 11/14/17 Lisinopril [Zestril] 10 mg PO DAILY 02/28/17 11/14/17 Sertraline [Zoloft] 50 mg PO DAILY 02/28/17 11/14/17 metFORMIN HCL [Glucophage] 1,000 mg PO BID 11/14/17 11/14/17 Allergies Allergy/AdvReac Type Severity Reaction Status Date / Time Penicillins Allergy Rash/Hives Verified 11/14/17 21:53 venom-honey bee Allergy Anaphylaxis Verified 11/14/17 21:53 Review of Systems ROS Statement: Those systems with pertinent positive or pertinent negative responses have been documented in the HPI. ROS Other: All systems not noted in ROS Statement are negative. Constitutional: Denies: fever Eyes: Denies: eye pain ENT: Denies: ear pain Respiratory: Reports: dyspnea Cardiovascular: Reports: chest pain, palpitations, dyspnea on exertion, orthopnea, edema Endocrine: Reports: fatigue Gastrointestinal: Denies: abdominal pain Genitourinary: Denies: dysuria Musculoskeletal: Denies: back pain Skin: Denies: rash Neurological: Denies: weakness Past Medical History Past Medical History: Coronary Artery Disease (CAD), Hyperlipidemia, Hypertension, Myocardial Infarction ([place]) Additional Past Medical History / Comment(s): arthritis, hx gout, recent stress test ok per pt, Last Myocardial Infarction Date:: 2011 History of Any Multi-Drug Resistant Organisms: None Reported Past Surgical History: Heart Catheterization, Orthopedic Surgery Additional Past Surgical History / Comment(s): arthroscopy left knee Past Anesthesia/Blood Transfusion Reactions: No Reported Reaction Past Psychological History: No Psychological Hx Reported Smoking Status: Never smoker Past Alcohol Use History: None Reported Past Drug Use History: None Reported - Past Family History Father Family Medical History: CVA/TIA Mother Family Medical History: No Reported History General Exam Limitations: no limitations General appearance: alert, in no apparent distress Head exam: Present: atraumatic Eye exam: Present: normal appearance, PERRL ENT exam: Present: normal oropharynx Neck exam: Present: normal inspection Respiratory exam: Present: decreased breath sounds (Bilateral bases) Cardiovascular Exam: Present: irregular rhythm Expanded Peripheral pulses: 2+: Radial (R), Radial (L), Dorsalis Pedis (R), Dorsalis Pedis (L) GI/Abdominal exam: Present: soft. Absent: tenderness Extremities exam: Present: pedal edema. 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 fib with RVR, rate 104. QRS 100. QT 3:30. QTC 433. Left axis. Septal Q waves. No acute ST change. Medical Decision Making - Medical Decision Making Patient reevaluated and updated. Case was discussed with Dr. martinez, who will admit for Dr. Guillen. Despite radiology interpretation there is clinical concern for CHF. - Lab Data Result diagrams: 11/14/17 21:41 11/14/17 21:41 Lab Results 11/14/17 11/14/17 11/14/17 Range/Units 21:41 21:41 21:41 WBC 5.8 (3.8-10.6) k/uL RBC 4.68 (4.30-5.90) m/uL Hgb 13.7 (13.0-17.5) gm/dL Hct 41.9 (39.0-53.0) % MCV 89.5 (80.0-100.0) fL MCH 29.2 (25.0-35.0) pg MCHC 32.6 (31.0-37.0) g/dL RDW 13.6 (11.5-15.5) % Plt Count 164 (150-450) k/uL Neutrophils % 67 % Lymphocytes % 20 % Monocytes % 6 % Eosinophils % 5 % Basophils % 0 % Neutrophils # 3.9 (1.3-7.7) k/uL Lymphocytes # 1.1 (1.0-4.8) k/uL Monocytes # 0.4 (0-1.0) k/uL Eosinophils # 0.3 (0-0.7) k/uL Basophils # 0.0 (0-0.2) k/uL PT (9.0-12.0) sec INR (<1.2) APTT (22.0-30.0) sec Sodium 141 (137-145) mmol/L Potassium 4.3 (3.5-5.1) mmol/L Chloride 107 (98-107) mmol/L Carbon Dioxide 23 (22-30) mmol/L Anion Gap 11 mmol/L BUN 21 H (9-20) mg/dL Creatinine 0.70 (0.66-1.25) mg/dL Est GFR (CKD-EPI)AfAm >90 (>60 ml/min/1.73 sqM) Est GFR (CKD-EPI)NonAf >90 (>60 ml/min/1.73 sqM) Glucose 98 (74-99) mg/dL Calcium 9.2 (8.4-10.2) mg/dL Magnesium 1.7 (1.6-2.3) mg/dL Total Bilirubin 0.3 (0.2-1.3) mg/dL AST 43 (17-59) U/L ALT 60 (21-72) U/L Alkaline Phosphatase 44 (38-126) U/L Total Creatine Kinase 195 H (55-170) U/L CK-MB (CK-2) 2.3 (0.0-2.4) ng/mL CK-MB (CK-2) Rel Index 1.2 Troponin I <0.012 (0.000-0.034) ng/mL NT-Pro-B Natriuret Pep pg/mL Total Protein 6.2 L (6.3-8.2) g/dL Albumin 3.6 (3.5-5.0) g/dL 11/14/17 11/14/17 Range/Units 21:41 21:41 WBC (3.8-10.6) k/uL RBC (4.30-5.90) m/uL Hgb (13.0-17.5) gm/dL Hct (39.0-53.0) % MCV (80.0-100.0) fL MCH (25.0-35.0) pg MCHC (31.0-37.0) g/dL RDW (11.5-15.5) % Plt Count (150-450) k/uL Neutrophils % % Lymphocytes % % Monocytes % % Eosinophils % % Basophils % % Neutrophils # (1.3-7.7) k/uL Lymphocytes # (1.0-4.8) k/uL Monocytes # (0-1.0) k/uL Eosinophils # (0-0.7) k/uL Basophils # (0-0.2) k/uL PT 11.0 (9.0-12.0) sec INR 1.1 (<1.2) APTT 22.5 (22.0-30.0) sec Sodium (137-145) mmol/L Potassium (3.5-5.1) mmol/L Chloride (98-107) mmol/L Carbon Dioxide (22-30) mmol/L Anion Gap mmol/L BUN (9-20) mg/dL Creatinine (0.66-1.25) mg/dL Est GFR (CKD-EPI)AfAm (>60 ml/min/1.73 sqM) Est GFR (CKD-EPI)NonAf (>60 ml/min/1.73 sqM) Glucose (74-99) mg/dL Calcium (8.4-10.2) mg/dL Magnesium (1.6-2.3) mg/dL Total Bilirubin (0.2-1.3) mg/dL AST (17-59) U/L ALT (21-72) U/L Alkaline Phosphatase (38-126) U/L Total Creatine Kinase (55-170) U/L CK-MB (CK-2) (0.0-2.4) ng/mL CK-MB (CK-2) Rel Index Troponin I (0.000-0.034) ng/mL NT-Pro-B Natriuret Pep 1580 pg/mL Total Protein (6.3-8.2) g/dL Albumin (3.5-5.0) g/dL - Radiology Data Radiology results: image reviewed (Chest x-ray shows some increased interstitial markings.) Critical Care Time Critical Care Time: Yes Total Critical Care Time: 32 Disposition Clinical Impression: Atrial fibrillation with RVR Disposition: ADMITTED IP TO THIS HOSP Is patient prescribed a controlled substance at d/c from ED?: No Referrals: Ezio Guillen DO [Primary Care Provider] - 1-2 days Decision Time: 00:04
[2017-11-14] MEDS ORDERED: DILTIAZEM 50 MG in SODIUM CHLORIDE 0.9% 40 ML IV ONE (22:15)
--- NOTE | 2017-11-14 22:34 | XR ---
EXAMINATION TYPE: XR chest 2V DATE OF EXAM: 11/14/2017 COMPARISON: 08/25/2016 HISTORY: Difficulty breathing TECHNIQUE: Frontal and lateral views of the chest are obtained. FINDINGS: There is coarsening of interstitial markings. There is no heart failure. Heart is probably enlarged. There are chest leads. There is no pleural effusion. There is no pulmonary consolidation. Bony thorax is intact. IMPRESSION: Slight increased interstitial pulmonary markings compared to old exam. There could be mi ld interstitial fibrosis. No heart failure.
[2017-11-14 22:36] LABS: Basophils % (A) 0 %; Eosinophils # (A) 0.3 k/uL (0-0.7); Eosinophils % (A) 5 %; HCT 41.9 % (39.0-53.0); HGB 13.7 gm/dL (13.0-17.5); Lymphocytes # (A) 1.1 k/uL (1.0-4.8); Lymphocytes % (A) 20 %; MCH 29.2 pg (25.0-35.0); MCHC 32.6 g/dL (31.0-37.0); MCV 89.5 fL (80.0-100.0); Mean Platelet Volume 7.2; Monocytes # (A) 0.4 k/uL (0-1.0); Monocytes % (A) 6 %; Neutrophils # (A) 3.9 k/uL (1.3-7.7); Neutrophils % (A) 67 %; Platelet Count 164 k/uL (150-450); RBC 4.68 m/uL (4.30-5.90); RDW 13.6 % (11.5-15.5); WBC 5.8 k/uL (3.8-10.6)
[2017-11-14 22:45] LABS: ALT 60 U/L (21-72); AST 43 U/L (17-59); Albumin 3.6 g/dL (3.5-5.0); Alkaline Phosphatase 44 U/L (38-126); Anion Gap 11 mmol/L; Blood Urea Nitrogen 21 mg/dL (9-20); Calcium 9.2 mg/dL (8.4-10.2); Carbon Dioxide 23 mmol/L (22-30); Chloride 107 mmol/L (98-107); Glucose 98 mg/dL (74-99); INR 1.1 (<1.2); Magnesium 1.7 mg/dL (1.6-2.3); Partial Thromboplastin Time 22.5 sec (22.0-30.0); Potassium 4.3 mmol/L (3.5-5.1); Sodium 141 mmol/L (137-145); Total Bilirubin 0.3 mg/dL (0.2-1.3); Total Protein 6.2 g/dL (6.3-8.2)
[2017-11-14 22:55] LABS: Creatine Kinase 195 U/L (55-170)
[2017-11-14 23:08] LABS: Creatine Kinase MB 2.3 ng/mL (0.0-2.4); Troponin I <0.012 ng/mL (0.000-0.034)
[2017-11-15] MEDS ORDERED: ASPIRIN 325 MG TAB PO STA (00:04)
[2017-11-15] MEDS ORDERED: HEPARIN SODIUM,PORCINE 5,000 UNIT/ML 1 ML VIAL IV ONE (00:06)
[2017-11-15] MEDS ORDERED: HEPARIN SODIUM,PORCINE 5,000 UNIT/ML 1 ML VIAL IV PRN (00:06)
[2017-11-15] MEDS: HEPARIN SODIUM,PORCINE/D5W PMX 25,000 UNIT in DEXTROSE/WATER 1 500ML.BAG IV SCH ×2 (00:14→20:15)
[2017-11-15] MEDS ORDERED: FUROSEMIDE 10 MG/ML 4 ML VIAL IV SCH (00:15)
[2017-11-15] MEDS ORDERED: NITROGLYCERIN OINT 1 INCH/GM PACKET TOPICAL SCH ×2 (00:15→09:00)
[2017-11-15] MEDS ORDERED: DILTIAZEM 5 MG/1 ML (25ML VIAL) IV STA (00:34)
[2017-11-15 01:48] VITALS: BMI 42.0
[2017-11-15] MEDS ORDERED: DILTIAZEM 50 MG in SODIUM CHLORIDE 0.9% 40 ML IV SCH (05:00)
[2017-11-15 07:06] LABS: Creatine Kinase MB 1.9 ng/mL (0.0-2.4); Troponin I <0.012 ng/mL (0.000-0.034)
[2017-11-15] MEDS: DILTIAZEM 50 MG in SODIUM CHLORIDE 0.9% 40 ML IV SCH ×2 (08:10→08:51)
[2017-11-15] MEDS: FUROSEMIDE 10 MG/ML 4 ML VIAL IV SCH ×2 (08:13→20:25)
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
[2017-11-15] MEDS: METOPROLOL TARTRATE 25 MG TAB PO SCH ×2 (10:30→18:18)
[2017-11-15] MEDS: ATORVASTATIN 40 MG TAB PO SCH (10:30)
[2017-11-15] MEDS: LISINOPRIL 10 MG TAB PO SCH (10:30)
[2017-11-15 11:26] LABS: Glucose,Whole Blood 149 mg/dL (75-99)
[2017-11-15 13:28] LABS: Creatine Kinase MB 1.7 ng/mL (0.0-2.4); Troponin I 0.013 ng/mL (0.000-0.034)
[2017-11-15 16:33] LABS: Glucose,Whole Blood 118 mg/dL (75-99)
[2017-11-15] MEDS ORDERED: NALOXONE 0.4 MG/ML 1 ML VIAL IV PRN (18:06)
[2017-11-15] MEDS ORDERED: MAGNESIUM HYDROXIDE 2,400 MG/10 ML CUP PO PRN (18:06)
[2017-11-15] MEDS ORDERED: ONDANSETRON 4 MG/2 ML VIAL IVP PRN (18:06)
[2017-11-15] MEDS ORDERED: LACTULOSE 20 GM/30 ML CUP PO PRN (18:06)
[2017-11-15] MEDS ORDERED: CALCIUM CARBONATE 500 MG CHEWABLE PO PRN (18:06)
[2017-11-15] MEDS ORDERED: MELATONIN 3 MG TABLET PO PRN (18:06)
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
--- NOTE | 2017-11-15 20:13 | ECHOF ---
Referral Reason:Heart Failure MEASUREMENTS -------- HEIGHT: 180.3 cm WEIGHT: 136.5 kg BP: 119/5 RVIDd: 2.9 cm (< 3.3) IVSd: 1.8 cm (0.6 - 1.1) LVIDd: 4.9 cm (3.9 - 5.3) LVPWd: 1.9 cm (0.6 - 1.1) IVSs: 2.3 cm LVIDs: 3.8 cm LVPWs: 2.3 cm LA Diam: 4.2 cm (2.7 - 3.8) LAESV Index (A-L): 46.67 ml/m Ao Diam: 3.5 cm (2.0 - 3.7) AV Cusp: 2.5 cm (1.5 - 2.6) MV EXCURSION: 15.488 mm (> 18.000) MV EF SLOPE: 314 mm/s (70 - 150) EPSS: 1.2 cm FINDINGS -------- Atrial fibrillation. This was a technically difficult study with suboptimal views. The left ventricular size is normal. There is severe concentric left ventricular hypertrophy. Ove rall left ventricular systolic function is mildly impaired with, an EF between 45 - 50 %. The right ventricle is normal in size. LA is severely dilated >40 ml/m2 The right atrium is normal in size. 3 ml of Lumason was utilized for enhancement of images. Aortic valve is trileaflet and is mildly thickened. Mild mitral annular calcification present. There is trace to mild mitral regurgitation. The tricuspid valve was not well visualized. The pulmonic valve was not well visualized. There is no pulmonic regurgitation present. The aortic root size is normal. Normal inferior vena cava with normal inspiratory collapse consistent with estimated right atrial pre ssure of 5 mmHg. There is no pericardial effusion. CONCLUSIONS -------- 1. Atrial fibrillation. 2. This was a technically difficult study with suboptimal views. 3. The left ventricular size is normal. 4. There is severe concentric left ventricular hypertrophy. 5. Overall left ventricular systolic function is mildly impaired with, an EF between 45 - 50 %. 6. The right ventricle is normal in size. 7. LA is severely dilated >40 ml/m2 8. 3 ml of Lumason was utilized for enhancement of images. 9. Aortic valve is trileaflet and is mildly thickened. 10. Mild mitral annular calcification present. 11. There is trace to mild mitral regurgitation. 12. The tricuspid valve was not well visualized. 13. There is no pulmonic regurgitation present. 14. The aortic root size is normal. 15. Normal inferior vena cava with normal inspiratory collapse consistent with estimated right atrial pressure of 5 mmHg. 16. There is no pericardial effusion. FOOD SERVER: Eva Venegas RDCS
[2017-11-15] MEDS: ACETAMINOPHEN TAB 325 MG TAB PO PRN (20:25)
[2017-11-15 21:24] LABS: Glucose,Whole Blood 126 mg/dL (75-99)
[2017-11-15] MEDS: metFORMIN 500 MG TAB PO SCH (21:48)
[2017-11-15] MEDS ORDERED: RX INFO: IV CONTRAST WAS GIVEN 1 EACH MISC MISCELLANE PRN (21:57)
--- NOTE | 2017-11-15 23:22 | CT ---
EXAMINATION TYPE: CT angio chest DATE OF EXAM: 11/15/2017 10:59 PM COMPARISON: 02/11/2014 HISTORY: Left side chest pain. CT DLP: 1677 mGycm Automated exposure control for dose reduction was used. CONTRAST: CTA scan of the thorax is performed without and with IV Contrast, patient injected with 100ml mL of I sovue 370, pulmonary embolism protocol. There are 3-D post processed images.. FINDINGS: There is mild subpleural interstitial density in the lungs. There is no evidence of a pulmonary mass. There is no pericardial effusion. There is no pleural effusion. There is no evidence of thoracic aortic aneurysm or dissection. I see no filling defects in the pulmo nary arteries. There are a few paratracheal lymph nodes that measure up to 1 cm. The bony thorax is i ntact. IMPRESSION: NO EVIDENCE OF PULMONARY EMBOLISM. MILD PULMONARY FIBROTIC CHANGES. THERE IS CLEARING OF MILD SUBSEGM ENTAL ATELECTASIS COMPARED TO OLD EXAM.
[2017-11-16] MEDS: ALPRAZolam 0.25 MG TAB PO PRN (02:02)
[2017-11-16] MEDS: ACETAMINOPHEN TAB 325 MG TAB PO PRN (02:02)
[2017-11-16 02:56] LABS: Glucose,Whole Blood 120 mg/dL (75-99)
[2017-11-16 06:19] LABS: Glucose,Whole Blood 128 mg/dL (75-99)
[2017-11-16] MEDS: INSULIN ASPART 100 UNIT/ML 1 ML 10 ML VIAL SQ SCH ×3 (06:28→17:04)
[2017-11-16 06:38] LABS: Basophils % (A) 0 %; Eosinophils # (A) 0.3 k/uL (0-0.7); Eosinophils % (A) 4 %; HCT 40.2 % (39.0-53.0); HGB 13.5 gm/dL (13.0-17.5); Lymphocytes # (A) 0.9 k/uL (1.0-4.8); Lymphocytes % (A) 14 %; MCH 30.6 pg (25.0-35.0); MCHC 33.5 g/dL (31.0-37.0); MCV 91.4 fL (80.0-100.0); Mean Platelet Volume 6.5; Monocytes # (A) 0.3 k/uL (0-1.0); Monocytes % (A) 5 %; Neutrophils # (A) 5.2 k/uL (1.3-7.7); Neutrophils % (A) 76 %; Platelet Count 166 k/uL (150-450); RDW 14.3 % (11.5-15.5); WBC 6.8 k/uL (3.8-10.6)
[2017-11-16 06:55] LABS: INR 1.2 (<1.2); Partial Thromboplastin Time 48.5 sec (22.0-30.0); Prothrombin Time 11.3 sec (9.0-12.0)
[2017-11-16] MEDS: FUROSEMIDE 10 MG/ML 4 ML VIAL IV SCH ×2 (08:31→19:52)
[2017-11-16] MEDS: METOPROLOL TARTRATE 25 MG TAB PO SCH ×2 (08:31→19:52)
[2017-11-16] MEDS: metFORMIN 500 MG TAB PO SCH ×2 (08:31→19:52)
[2017-11-16] MEDS: SERTRALINE 50 MG TAB PO SCH (08:31)
[2017-11-16] MEDS: ASPIRIN 81 MG PO SCH (08:31)
[2017-11-16] MEDS: ATORVASTATIN 40 MG TAB PO SCH (08:32)
[2017-11-16] MEDS: DICLOFENAC SODIUM GEL 100 GM TUBE TOPICAL SCH ×4 (08:33→19:53)
[2017-11-16] MEDS: LISINOPRIL 10 MG TAB PO SCH (08:37)
[2017-11-16] MEDS ORDERED: ASPIRIN 325 MG TAB PO SCH (09:00)
[2017-11-16] MEDS: HEPARIN SODIUM,PORCINE/D5W PMX 25,000 UNIT in DEXTROSE/WATER 1 500ML.BAG IV SCH (10:54)
[2017-11-16 11:33] LABS: Glucose,Whole Blood 103 mg/dL (75-99)
[2017-11-16 12:37] LABS: Anion Gap 8 mmol/L; Blood Urea Nitrogen 25 mg/dL (9-20); Calcium 8.6 mg/dL (8.4-10.2); Carbon Dioxide 27 mmol/L (22-30); Chloride 101 mmol/L (98-107); Glucose 123 mg/dL (74-99); Potassium 3.8 mmol/L (3.5-5.1); Sodium 136 mmol/L (137-145)
[2017-11-16] MEDS: APIXABAN 5 MG TAB PO SCH ×2 (13:51→19:52)
--- NOTE | 2017-11-16 15:15 | P.PN ---
Subjective Progress Note Date: 11/16/17 This is a pleasant 67-year-old gentleman with known history of hypertension, hyperlipidemia, diabetes, who follows with Dr. Mehta in the office. Patient did have a cardiac catheterization performed in 2011 which revealed moderate coronary artery disease, medical therapy advised at that time. Patient presents to the hospital with a 2 day duration of worsening shortness of breath, and peripheral edema. He also states that he felt his heart flip-flopping and beating irregular. For these reasons he came to the emergency room for further evaluation. Chest x-ray on admission here showed slight increase in interstitial pulmonary markings compared with prior exam. EKG on presentation here showed atrial fibrillation with a rapid ventricular response and occasional PVCs. Blood pressure on arrival here 160/80, heart rate in the 120s, 97% on room air. Blood pressure 110/50, heart rate in the 60s , 98% on 2 L of oxygen. CBC is normal, sodium 141, potassium 4.3, BUN 21, creatinine 0.7. Troponins are negative 2. BNP level 1580. Patient denies any prior history of atrial fibrillation. He was initiated on IV Cardizem and IV heparin in the emergency room. Patient was also started on IV Lasix, he has been diuresing through the night. 11/16/2017 Patient was seen and examined this morning, he diuresed well on IV Lasix although his weight is not reflective of this. The edema in his extremities is significantly improved. He did state through the night last night he had an episode where he felt a spasm in his scapular area he said it was quite painful. This morning overall he feels better. Potassium level is 3.8, magnesium 2.0, CBC normal. Echocardiogram with Doppler study was performed which revealed an ejection fraction of 45-50%. Objective - Vital Signs Vital signs: Vital Signs Temp 96.6 F L 11/16/17 11:13 Pulse 69 11/16/17 11:13 Resp 20 11/16/17 11:13 BP 121/69 11/16/17 11:13 Pulse Ox 98 11/16/17 11:13 Intake & Output 11/15/17 11/16/17 11/16/17 18:59 06:59 18:59 Intake Total 976.495 186.293 901.665 Output Total 1550 900 Balance -573.505 -713.707 901.665 Weight 136.7 kg 137.5 kg Intake: Intake, IV Titration 191.495 186.293 411.665 Amount Diltiazem 50 mg In Sodium 10.25 Chloride 0.9% 40 ml @ 15 MG/HR 15 mls/hr IV . Q3H20M [facility] Rx#:[id number] Heparin Sodium,Porcine/ 181.245 186.293 411.665 D5w Pmx 25,000 unit In Dextrose/Water 1 500ml. bag @ 7.5 UNITS/KG/HR 20. 07 mls/hr IV .Q24H [facility] Rx #:[id number] Oral 785 490 Output: Urine 1550 900 Other: Voiding Method Urinal Urinal Urinal # Voids 1 1 # Bowel Movements 0 - Exam PHYSICAL EXAMINATION: HEENT: Head is atraumatic, normocephalic. Pupils equal, round. Neck is supple. There is no elevated jugular venous pressure. HEART EXAMINATION: Heart S1 and S2 irregularly irregular CHEST EXAMINATION: Lungs are clear with fine rales to bilateral bases. ABDOMEN: Soft, obese, nontender. Bowel sounds are heard. No organomegaly noted. EXTREMITIES: 2+ peripheral pulses with trace to 1+ evidence of peripheral edema and no calf tenderness noted. NEUROLOGIC patient is awake, alert and oriented -3. . - Labs CBC & Chem 7: 11/16/17 06:13 11/16/17 06:13 Labs: Abnormal Lab Results - Last 24 Hours (Table) 11/15/17 11/15/17 11/16/17 Range/Units 16:26 21:21 02:53 Lymphocytes # (1.0-4.8) k/uL INR (<1.2) APTT (22.0-30.0) sec Sodium (137-145) mmol/L BUN (9-20) mg/dL Glucose (74-99) mg/dL POC Glucose (mg/dL) 118 H 126 H 120 H (75-99) mg/dL 11/16/17 11/16/17 11/16/17 Range/Units 06:13 06:13 06:13 Lymphocytes # 0.9 L (1.0-4.8) k/uL INR 1.2 H (<1.2) APTT 48.5 H (22.0-30.0) sec Sodium 136 L (137-145) mmol/L BUN 25 H (9-20) mg/dL Glucose 123 H (74-99) mg/dL POC Glucose (mg/dL) (75-99) mg/dL 11/16/17 11/16/17 Range/Units 06:17 11:32 Lymphocytes # (1.0-4.8) k/uL INR (<1.2) APTT (22.0-30.0) sec Sodium (137-145) mmol/L BUN (9-20) mg/dL Glucose (74-99) mg/dL POC Glucose (mg/dL) 128 H 103 H (75-99) mg/dL Assessment and Plan Plan: Assessment and plan #1 atrial fibrillation with rapid ventricular response, appears to be of new onset. #2 hypertension #3 diabetes #4 hyperlipidemia Plan IV heparin has been discontinued and patient was initiated on Eliquis today. Echocardiogram with Doppler study revealed an ejection fraction of 45-50%. We' ll continue IV Lasix for 24 hours. Potassium and magnesium levels are normal. Check lytes BUN and creatinine in the morning. DNP note has been reviewed, I agree with a documented findings and plan of care. Patient was seen and examined.
[2017-11-16 16:48] LABS: Glucose,Whole Blood 107 mg/dL (75-99)
--- NOTE | 2017-11-16 19:35 | PN ---
PROGRESS NOTE DATE OF SERVICE: 11/16/2017 PRESENTING COMPLAINT: Short of breath. INTERVAL HISTORY: This patient presented with acute congestive heart failure and atrial flutter/ fibrillation. Breathing a bit better. Per Cardiology was started on Eliquis today. Tolerating a diet. The patient did get up to the bathroom. The patient did convert to sinus rhythm this morning, but a couple of times did revert back into atrial flutter/fib. REVIEW OF SYSTEMS: Done for constitutional, cardiovascular, GI, pulmonary; relevant findings as above. CURRENT MEDICATIONS: Reviewed that include: 1. P.o. Eliquis. 2. Aspirin. 3. IV Lasix. EXAMINATION: Temperature 96.6, pulse, respirations 20, blood pressure 120/69 pulse ox 98% on 2L. GENERAL APPEARANCE: Sitting up awake. EYES: Pupils equal. Conjunctivae normal. HEENT: External appearance of nose and ears normal. Oral cavity normal. NECK: JVD unable to assess. Mass not palpable. RESPIRATORY: Effort increased. LUNGS: Decreased breath sounds. CARDIOVASCULAR: First and second sounds normal. Decreased edema. ABDOMEN: Distended, soft. Liver, spleen not palpable. PSYCHIATRY: Alert and oriented x3. Mood and affect were normal. INVESTIGATIONS: White count 6.8, hemoglobin 13.5. Potassium 3.8, BUN 25, creatinine 0.74. Telemetry: Sinus rhythm. 1. Acute congestive heart failure exacerbation with known coronary artery disease from systolic dysfunction, ejection fraction 45%-50%. 2. Coronary artery disease with angioplasty in 2012. 3. Hyperlipidemia. 4. Diabetes mellitus type 2 on oral hypoglycemic. 5. Depression, not otherwise specified. 6. Essential hypertension. 7. Primary osteoarthritis in multiple joints bilaterally. 8. Morbid obesity, BMI of 42. 9. Paroxysmal atrial flutter/fibrillation. Now patient is back in sinus rhythm. PLAN: The patient is already started on Eliquis. Continue current medication and treatment plan. Patient is on IV Lasix. Encouraged to be out of bed. Follow electrolytes closely. MMODL / IJN: [id number] /
[2017-11-16 21:48] LABS: Glucose,Whole Blood 101 mg/dL (75-99)
[2017-11-17] MEDS: ALPRAZolam 0.25 MG TAB PO PRN (02:35)
[2017-11-17 06:10] LABS: Glucose,Whole Blood 107 mg/dL (75-99)
[2017-11-17] MEDS: INSULIN ASPART 100 UNIT/ML 1 ML 10 ML VIAL SQ SCH ×2 (06:30→11:31)
[2017-11-17 06:50] LABS: Basophils % (A) 1 %; Eosinophils # (A) 0.3 k/uL (0-0.7); Eosinophils % (A) 5 %; HCT 41.1 % (39.0-53.0); HGB 13.1 gm/dL (13.0-17.5); Lymphocytes # (A) 1.2 k/uL (1.0-4.8); Lymphocytes % (A) 22 %; MCH 29.3 pg (25.0-35.0); MCHC 31.8 g/dL (31.0-37.0); Monocytes # (A) 0.4 k/uL (0-1.0); Monocytes % (A) 7 %; Neutrophils # (A) 3.5 k/uL (1.3-7.7); Neutrophils % (A) 65 %; Platelet Count 169 k/uL (150-450); RBC 4.46 m/uL (4.30-5.90); RDW 13.7 % (11.5-15.5); WBC 5.4 k/uL (3.8-10.6)
[2017-11-17 07:03] LABS: INR 1.1 (<1.2); Prothrombin Time 10.8 sec (9.0-12.0)
[2017-11-17 07:51] VITALS: PULSE 65; RESP 18
[2017-11-17] MEDS: DICLOFENAC SODIUM GEL 100 GM TUBE TOPICAL SCH ×2 (07:53→13:12)
[2017-11-17] MEDS: ASPIRIN 81 MG PO SCH (07:54)
[2017-11-17] MEDS: FUROSEMIDE 10 MG/ML 4 ML VIAL IV SCH (07:54)
[2017-11-17] MEDS: metFORMIN 500 MG TAB PO SCH (07:54)
[2017-11-17] MEDS: LISINOPRIL 10 MG TAB PO SCH (07:54)
[2017-11-17] MEDS: APIXABAN 5 MG TAB PO SCH (07:54)
[2017-11-17] MEDS: METOPROLOL TARTRATE 25 MG TAB PO SCH (07:54)
[2017-11-17] MEDS: SERTRALINE 50 MG TAB PO SCH (07:55)
[2017-11-17] MEDS: ATORVASTATIN 40 MG TAB PO SCH (07:55)
[2017-11-17 11:24] LABS: Glucose,Whole Blood 74 mg/dL (75-99)
[2017-11-17 11:30] VITALS: BP 122/69; TEMP 97.1
--- NOTE | 2017-11-17 15:58 | P.PN ---
Subjective Progress Note Date: 11/17/17 This 67-year-old gentleman is admitted with persistent atrial fibrillation. Patient was started on beta blockers and anti-coagulation therapy. Patient converted back to sinus rhythm. Feeling much better. Being discharged home today Objective - Vital Signs Vital signs: Vital Signs Temp 97.1 F L 11/17/17 11:29 Pulse 65 11/17/17 11:30 Resp 18 11/17/17 11:30 BP 122/69 11/17/17 11:29 Pulse Ox 95 11/17/17 11:29 Intake & Output 11/16/17 11/17/17 11/17/17 18:59 06:59 18:59 Intake Total 1019.665 760 Output Total 625 Balance 1019.665 135 Weight 134.4 kg Intake: Intake, IV Titration 411.665 Amount Heparin Sodium,Porcine/ 411.665 D5w Pmx 25,000 unit In Dextrose/Water 1 500ml. bag @ 7.5 UNITS/KG/HR 20. 07 mls/hr IV .Q24H [facility] Rx #:[id number] Oral 608 760 Output: Urine 625 Other: Voiding Method Urinal Urinal Urinal # Voids 1 2 2 - Exam GENERAL EXAM: Patient is alert and oriented and doesn't appear to be in any acute distress HEENT: Normocephalic. Normal reaction of pupils, equal size, normal range of extraocular motion. No erythema or exudates in the throat. NECK: No masses, no nuchal rigidity. CHEST: No chest wall deformity. LUNGS: Equal air entry with no crackles or wheeze. HEART: S1 and S2 normal with no audible mumurs or gallops. Regular rhythm, femorals equal on both sides.. ABDOMEN: No hepatosplenomegaly, normal bowel sounds, no guarding or rigidity. SKIN: No rashes CENTRAL NERVOUS SYSTEM: No focal deficits. EXTREMITIES: No cyanosis, clubbing or edema. - Labs CBC & Chem 7: 11/17/17 06:29 11/16/17 06:13 Labs: Abnormal Lab Results - Last 24 Hours (Table) 11/16/17 11/16/17 11/17/17 Range/Units 16:46 21:45 06:09 POC Glucose (mg/dL) 107 H 101 H 107 H (75-99) mg/dL 11/17/17 Range/Units 11:22 POC Glucose (mg/dL) 74 L (75-99) mg/dL Assessment and Plan (1) Atrial fibrillation with RVR Current Visit: Yes Status: Acute Code(s): I48.91 - UNSPECIFIED ATRIAL FIBRILLATION SNOMED Code(s): 428196879034903 (2) CAD (coronary artery disease) Current Visit: No Status: Acute Code(s): I25.10 - ATHSCL HEART DISEASE OF [place] CORONARY ARTERY W/O ANG PCTRS SNOMED Code(s): 314320535 (3) HTN (hypertension) Current Visit: No Status: Acute Code(s): I10 - ESSENTIAL (PRIMARY) HYPERTENSION SNOMED Code(s): 70277366 (4) Hyperlipemia Current Visit: No Status: Acute Code(s): E78.5 - HYPERLIPIDEMIA, UNSPECIFIED SNOMED Code(s): 84826102 Plan: Patient is back in sinus rhythm. Being discharged on beta blockers and anticoagulation therapy. Follow up with Dr. Mehta.
--- NOTE | 2017-11-22 10:38 | CDI ---
Last Revision, June 2017 Documentation Clarification Form Date: 11/22/17 From: Katie Sunny Cynthia Lu, Registered Veterinary Technician Hours-8:30 am & 5 pm M- Admit Date: 11/15/2017 12:04:00 AM Patient Name: Dinh Quintero Visit Number: [id number] Discharge Date: ATTENTION: The Clinical Documentation Specialists (CDI) and [facility] Coding Staff appreciate your assistance in clarifying documentation. Please respond to the clarification below the line at the bottom and electronically sign. The CDI & [facility] Coding staff will review the response and follow-up if needed. Please note: Queries are made part of the Legal Health Record. If you have any questions, please contact the author of this message via ITS. Dr. Ama Montoya New Atrial Flutter is documented in the HP and PN. Patient started on IV Cardizem and IV Heparin. He was discharged on Eliquis and ASA. In your professional opinion, in order to capture the severity of condition; can you please clarify the type of atrial flutter if known? Typical/Type I Atypical/Type II Other, please specify Unable to determine Please continue to document in your progress notes and discharge summary in order to capture severity of illness and risk of mortality. Include clinical findings that support your diagnosis. MTDD
--- NOTE | 2017-11-22 22:25 | DS ---
DISCHARGE SUMMARY FINAL DIAGNOSES: 1. Acute congestive heart failure exacerbation from systolic dysfunction, ejection fraction 45% to 50% from underlying coronary artery disease. 2. Coronary artery disease with prior angioplasty in 2012. 3. Hyperlipidemia. 4. Diabetes mellitus type 2 on oral hypoglycemic. 5. Depression, not otherwise specified. 6. Essential hypertension. 7. Primary osteoarthritis in multiple joints bilaterally. 8. Morbid obesity, BMI of 42. 9. Paroxysmal atrial flutter/fibrillation, new onset with rapid ventricular rate on presentation, now in sinus rhythm. HOSPITAL COURSE: This patient presented with shortness of breath and found to be in CHF and also atrial flutter/fibrillation, did convert to sinus rhythm prior to discharge. A 2D echocardiogram showed EF of 45% to 50%. Chest CTA negative for PE. On examination, lungs are clear. CARDIOVASCULAR: First and seconds sounds normal. INVESTIGATIONS: The patient's creatinine was 0.74 before discharge. DISCHARGE MEDICATIONS: 1. Lipitor 40 mg a day. 2. Zestril 10 mg p.o. daily. 3. Zoloft 50 mg daily. 4. Metformin 1000 mg p.o. b.i.d. 5. Eliquis 5 mg b.i.d. 6. Aspirin 81 mg p.o. daily. 7. Voltaren gel 4 grams topical q.i.d. 8. Lasix 40 mg p.o. b.i.d. 9. Lopressor 25 p.o. b.i.d. 10.K-Dur 20 mEq p.o. daily. FOLLOWUP: Follow up with Dr. Hinojosa on 11/28/2017, follow up with Dr. Guillen in 3 days. BMP in 3 days. MMODL / IJN: [id number] /
== END 2017-11-17 16:36 | disposition home or self-care (01) | DRG 292 ==
LOC: EC 21:13 → 6SEL 11-15 00:04
PROVIDERS: ADMIT Hospitalist; ATTEND Hospitalist
DX: I11.0 Hypertensive heart disease with heart failure (principal); I48.1 Persistent atrial fibrillation; Z68.41 Body mass index [BMI] 40.0-44.9, adult; I48.92 Unspecified atrial flutter; I50.23 Acute on chronic systolic (congestive) heart failure; E66.01 Morbid (severe) obesity due to excess calories; I25.10 Atherosclerotic heart disease of native coronary artery without angina pectoris; E78.5 Hyperlipidemia, unspecified; I25.2 Old myocardial infarction; M19.91 Primary osteoarthritis, unspecified site; I49.3 Ventricular premature depolarization; E11.9 Type 2 diabetes mellitus without complications; F32.9 Major depressive disorder, single episode, unspecified; Z79.84 Long term (current) use of oral hypoglycemic drugs; Z79.899 Other long term (current) drug therapy; Z88.0 Allergy status to penicillin; Z87.39 Personal history of other diseases of the musculoskeletal system and connective tissue; Z87.820 Personal history of traumatic brain injury; Z91.030 Bee allergy status; Z98.61 Coronary angioplasty status; Z82.3 Family history of stroke
CPT/HCPCS: 36415; 71046; 71275; 80048; 80053; 82550; 82553; 83735; 83880; 84443; 84484; 85025; 85610; 85730; 93005; 93306; 94760; 96365; 96366; 96368; 96375; 96376; 99291

== ENCOUNTER → 2017-11-20 | Outpatient (CLI) | payer MEDICARE, OTHER ==
[2017-11-20 09:55] LABS: Anion Gap 13 mmol/L; Blood Urea Nitrogen 30 mg/dL (9-20); Calcium 9.4 mg/dL (8.4-10.2); Carbon Dioxide 25 mmol/L (22-30); Chloride 102 mmol/L (98-107); Glucose 128 mg/dL (74-99); Sodium 140 mmol/L (137-145)
== END | disposition home or self-care (01) ==
LOC: LABWHC1 08:24
PROVIDERS: ATTEND Hospitalist
DX: I50.9 Heart failure, unspecified (principal)
CPT/HCPCS: 36415; 80048